=== PATIENT | female | born 1970 | race Caucasian/White ===

== ENCOUNTER 2022-08-22 13:37 | Emergency (ER) | payer BC ==
[~2022-08-22] VITALS: Ht 157.5 cm; Wt 65.0 kg
[2022-08-22 13:45] VITALS: BP 132/92
[2022-08-22] MEDS ORDERED: ONDANSETRON HCL 4MG/2ML INJ IV ONE (14:30)
[2022-08-22] MEDS: ACETAMINOPHEN 325MG TABLET PO ONE ×2 (14:47→14:56)
[2022-08-22] MEDS ORDERED: MORPHINE SULFATE 4 MG/ML CPJ (NOT FOR IM USE) IV ONE (16:00)
[2022-08-22 17:04] LABS: BASOPHILS % 0.3 % (0.0-2.0); EOSINOPHILS % 1.3 % (0.0-5.0); HEMATOCRIT. 38.5 % (36.0-48.0); HEMOGLOBIN. 13.1 g/dL (12.0-16.0); LYMPHOCYTES % 37.1 % (20.0-50.0); MEAN CORPUSCULAR HEMOGLOBIN 29.6 pg (28.0-32.0); MEAN CORPUSCULAR VOLUME 86.9 fL (81.0-99.0); NEUTROPHILS % 55.3 % (40.0-76.0); PLATELET 400 x1000/uL (130-400); RED BLOOD CELL COUNT 4.44 mill/uL (4.2-5.4); RED CELL DISTRIBUTION WIDTH 14.1 % (11.6-14.6)
[2022-08-22 17:07] LABS: CHLORIDE 107 mEq/L (98-107)
[2022-08-22 17:08] LABS: INR 0.9; PROTHROMBIN TIME 10.2 sec (9.6-11.0)
[2022-08-22 17:18] LABS: ETHANOL BLOOD < 10 mg/dL
[2022-08-22] MEDS ORDERED: METH-653 MT (20:04)
[2022-08-22] MEDS ORDERED: IBUP-2029 MT (20:04)
[2022-08-22] MEDS ORDERED: IOHEXOL-300 100 ML BOTTLE ONE (23:15)
== END 2022-08-22 21:03 | disposition home or self-care (01) ==
LOC: ER 13:37
DX: S22.32XA Fracture of one rib, left side, initial encounter for closed fracture (principal); I10 Essential (primary) hypertension; E11.9 Type 2 diabetes mellitus without complications; Z88.2 Allergy status to sulfonamides; V49.49XA Driver injured in collision with other motor vehicles in traffic accident, initial encounter; Y93.89 Activity, other specified; Y92.488 Other paved roadways as the place of occurrence of the external cause
CPT/HCPCS: 36415; 70450; 71045; 71260; 72125; 74177; 80053; 80320; 84484; 85025; 85610; 93005; 96374; 96375; 99285; J2270; J2405; Q9967; G0480